=== PATIENT | male | born 1940 | race Caucasian/White ===

== ENCOUNTER 2020-10-29 17:09 | Inpatient (IN) ==
[2020-10-29] MEDS ORDERED: Ipratropium/Albuterol Neb 3 ML ONE ×2 (18:26→18:27)
[2020-10-29] MEDS ORDERED: Ipratropium/Albuterol Neb 3 ML IH ONE (18:39)
[2020-10-29] MEDS ORDERED: Morphine Sulfate 2 MG/ML SYRINGE IVP PRN ×2 (18:40→20:22)
[2020-10-29] MEDS ORDERED: Ipratropium/Albuterol Neb 3 ML IH PRN ×2 (18:40→20:22)
[2020-10-29] MEDS ORDERED: Naloxone 0.4 MG/ML INJ IVP PRN ×2 (18:40→20:22)
[2020-10-29] MEDS ORDERED: *HR* LORazepam Oral Conc 2 MG/ML SL PRN ×2 (18:40→20:22)
[2020-10-29] MEDS ORDERED: Pantoprazole 40 MG in 0.9 % Sodium Chloride Mini Bag 100 ML IVC SCH (18:45)
[2020-10-30] MEDS ORDERED: Atropine 1% Opth Drops 100 DROP/5 ML BOTTLE SL PRN (09:17)
[2020-10-30] MEDS ORDERED: *HR* LORazepam Oral Conc 2 MG/ML SL PRN ×2 (09:18→15:23)
[2020-10-30] MEDS ORDERED: Morphine Sulfate Oral CONC 10 MG/0.5 ML ORAL.SYG SL PRN (09:18)
[2020-10-30] MEDS ORDERED: Morphine Sulfate 2 MG/ML SYRINGE IVP PRN (09:19)
[2020-10-30] MEDS ORDERED: Ringers Solution, Lactated 1,000 ML IVC ONE ×2 (14:03→15:49)
[2020-10-30 14:46] LABS: Basophils # 0.1 K/mcL (0.0-0.2); Basophils % 0.4 %; Hematocrit 25.6 % (37.5-50.1); Hemoglobin 8.1 g/dL (12.9-16.9); Immature Granulocytes % 4.4 % (0-4); Lymphocytes # 1.5 K/mcL (0.6-4.6); Lymphocytes % 4.7 %; Mean Corpuscular HGB Conc 31.6 g/dL (31.6-35.5); Mean Corpuscular Hemoglobin 30.1 pg (28.0-33.3); Mean Corpuscular Volume 95.2 fL (83.0-100.0); Mean Platelet Volume 10.7 fL (9.4-12.4); Monocytes # 2.8 K/mcL (0.0-1.3); Monocytes % 8.9 %; Neutrophils # 25.2 K/mcL (1.6-8.9); Nucleated Red Blood Cells 3.1 /100 WBC (0); Platelet Count 176 K/mcL (140-400); Red Blood Count 2.69 M/mcL (4.19-5.50); Red Cell Distribution Width 17.3 % (11.5-14.5); Segmented Neutrophils % 81.6 %
[2020-10-30 14:56] LABS: White Blood Count 30.9 K/mcL (4.3-11.1)
[2020-10-30 15:08] LABS: Albumin 3.1 g/dL (3.5-5.7); Albumin/Globulin Ratio 1.7 (1.1-2.2); Bilirubin,Total 0.3 mg/dL (0.3-1.0); Calcium 7.3 mg/dL (8.6-10.3); Globulin 1.8 g/dL (2.4-3.5); Potassium 5.5 mEq/L (3.5-5.1); Total Protein 4.9 g/dL (6.4-8.9)
[2020-10-30] MEDS ORDERED: Aspirin 325 MG TABLET PO ONE (15:49)
[2020-10-30] MEDS ORDERED: Piperacillin/Tazobactam 3.375 GM in 0.9 % Sodium Chloride Mini Bag 100 ML IVPB SCH ×2 (16:00)
[2020-10-30] MEDS ORDERED: Pantoprazole 40 MG VIAL IVP SCH (16:02)
[2020-10-30] MEDS ORDERED: Ipratropium/Albuterol Neb 3 ML IH PRN (16:05)
[2020-10-30] MEDS ORDERED: Dextrose Gel 15 GM/37.5 ML TUBE PO PRN ×2 (16:07)
[2020-10-30] MEDS ORDERED: D5% in Water 1,000 ML IVC PRN (16:07)
[2020-10-30] MEDS ORDERED: *HR* Dextrose 50 % in Water (Vial) 50 ML VIAL IVP PRN (16:07)
[2020-10-30] MEDS ORDERED: Insulin LISPRO 300 UNITS/3 ML VIAL SUBQ SCH ×2 (16:30→21:00)
[2020-10-30] MEDS ORDERED: Dexamethasone Sodium Phos/PF 10 MG/ML VIAL IVP SCH (17:15)
[2020-10-31] MEDS: Morphine Sulfate Oral CONC 10 MG/0.5 ML ORAL.SYG SL PRN ×3 (02:32→20:29)
[2020-10-31] MEDS ORDERED: Dexamethasone Sodium Phos/PF 10 MG/ML VIAL IVP ONE (10:06)
[2020-10-31 13:27] LABS: VBG HCO3 24 mEq/L (21-27); VBG PCO2 42 mmHg (41-51); VBG PH 7.37 pH Units (7.32-7.42); VBG PO2 78 mmHg (25-50)
[2020-10-31 19:10] VITALS: BP 107/63
[2020-11-01] MEDS: Morphine Sulfate Oral CONC 10 MG/0.5 ML ORAL.SYG SL PRN (04:28)
== END 2020-11-01 04:30 | disposition expired | DRG 377 ==
LOC: ICNU → SUATTDRO 18:40 → 2ANU 20:58
PROVIDERS: ADMIT Pediatrics; ATTEND Internal Medicine